=== PATIENT | male | born 1995 ===

== ENCOUNTER 2017-05-31 21:54 | Emergency (ER) | payer SELFPAY ==
[2017-05-31 22:03] VITALS: BP 123/67; PULSE 81; RESP 20; TEMP 98.6; O2SAT 98
--- NOTE | 2017-05-31 22:37 | C.PDOC ---
History Of Present Illness 21 y/o male c/o bilateral eye redness and discharge since yesterday. Patient notes that the symptoms started on his right eye and progressed to both eyes today. Denies trauma, foreign body, itchiness, URI symptoms, fever, chills, headache, visual changes, photophobia, or any other complaints. Time Seen by Provider: 05/31/17 22:14 Chief Complaint (Nursing): Eye Problem History Per: Patient History/Exam Limitations: no limitations Onset/Duration Of Symptoms: Days (yesterday) Current Symptoms Are (Timing): Still Present Injury To Eye?: No Severity: Mild Wears Contact Lens?: Yes Associated Symptoms: Discharge From Eye. denies: Decreased Vision, FB Sensation , Itching Recent travel outside of the [place]: No Additional History Per: Patient Past Medical History Reviewed: Historical Data, Nursing Documentation, Vital Signs Vital Signs: Last Vital Signs Temp 98.6 F 05/31/17 21:56 Pulse 81 05/31/17 21:56 Resp 20 05/31/17 21:56 BP 123/67 05/31/17 21:56 Pulse Ox 98 05/31/17 23:00 Family History: States: Unknown Family Hx - Social History Hx Alcohol Use: No Hx Substance Use: No - Immunization History Hx Tetanus Toxoid Vaccination: No Hx Influenza Vaccination: No Hx Pneumococcal Vaccination: No Review Of Systems Constitutional: Negative for: Fever, Chills, Other (Trauma) Eyes: Positive for: Redness (And discharge. No itchiness). Negative for: Vision Change, Other (Photophobia) Respiratory: Negative for: Cough Neurological: Negative for: Headache, Dizziness Physical Exam - Physical Exam Appears: Non-toxic, No Acute Distress Skin: Warm, Dry Head: Atraumatic, Normacephalic Eye(s): bilateral: PERRL, EOMI, Other (Moderate ciliary injection of the conjunctiva with crusting to the upper eye lids. Visual acuity, unable to do w/ o glassess (far sighted).) Nose: Normal Oral Mucosa: Moist Throat: Normal, No Erythema Neurological/Psych: Oriented x3, Normal Speech, Normal Cognition ED Course And Treatment O2 Sat by Pulse Oximetry: 98 (RA) Pulse Ox Interpretation: Normal Progress Note: impression: 21 y/o male c/o bilateral eye redness and discharge since yesterday. Plans: Tobramycin eye drops, Reassess. Pt is in no acute distress at this time and is improving with the eye redness and discharge. Pt is currently afebrile and was instructed to visit PMD for further evaluation and to return if symptoms worsens. Disposition Counseled Patient/Family Regarding: Diagnosis, Need For Followup, Rx Given - Disposition Disposition: HOME/ ROUTINE Disposition Time: 22:37 Condition: STABLE Additional Instructions: Apply eye drops as directed Apply warm compress to area Follow up with PMD Return to ER if worse Prescriptions: Tobramycin 0.3% [Tobrex 0.3% Ophth Soln] 1 drop OU BID #1 bottle Instructions: Conjunctivitis (ED) Forms: DIIME (Spanish), School Excuse - Clinical Impression Clinical Impression: Conjunctivitis - Scribe Statement The provider has reviewed the documentation as recorded by the Scribnahid sanabria All medical record entries made by the Scribe were at my direction and personally dictated by me. I have reviewed the chart and agree that the record accurately reflects my personal performance of the history, physical exam, medical decision making, and the department course for this patient. I have also personally directed, reviewed, and agree with the discharge instructions and disposition.
== END 2017-05-31 22:48 | disposition home or self-care (01) ==
LOC: C.ER 21:54
DX: H10.9 Unspecified conjunctivitis (principal)